=== PATIENT | male | born 2000 | race Caucasian/White ===

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

== ENCOUNTER 2020-09-09 11:08 | Emergency (ER) | payer SELFPAY ==
[~2020-09-09] VITALS: Ht 182.9 cm; Wt 82.0 kg
[2020-09-09] MEDS ORDERED: KEFLEX500 M1 PO (11:59)
[2020-09-09 12:03] VITALS: BP 139/69
== END 2020-09-09 12:03 | disposition home or self-care (01) | DRG 603 ==
LOC: ED 11:08
DX: L03.113 Cellulitis of right upper limb (principal); S60.511A Abrasion of right hand, initial encounter; I10 Essential (primary) hypertension; X58.XXXA Exposure to other specified factors, initial encounter

== ENCOUNTER 2021-03-25 15:25 | Emergency (ER) | payer SELFPAY ==
[~2021-03-25] VITALS: Ht 182.9 cm; Wt 89.5 kg
[2021-03-25] MEDS ORDERED: CEPHALEXIN500 M1 PO (15:55)
[2021-03-25 16:23] VITALS: BP 136/84
== END 2021-03-25 16:26 | disposition home or self-care (01) | DRG 605 ==
LOC: ED 15:25
PROC: 0HQFXZZ Repair Right Hand Skin, External Approach (ICD-10-PCS; principal; 2021-03-25)
DX: S61.210A Laceration without foreign body of right index finger without damage to nail, initial encounter (principal); I10 Essential (primary) hypertension; W29.3XXA Contact with powered garden and outdoor hand tools and machinery, initial encounter; Y93.H2 Activity, gardening and landscaping; Y92.89 Other specified places as the place of occurrence of the external cause; Y99.0 Civilian activity done for income or pay